=== PATIENT | male | born 1990 | race African-American/Black ===

== ENCOUNTER 2017-05-10 22:57 | Emergency (ER) | payer OTHER ==
[~2017-05-10] VITALS: Ht 188 cm; Wt 102.1 kg
[2017-05-10 23:00] VITALS: BP_SYST 139
[2017-05-10 23:25] VITALS: BP_SYST 139
== END 2017-05-10 23:20 | disposition home or self-care (01) ==
LOC: SED 22:57
DX: F41.9 Anxiety disorder, unspecified (principal)
CPT/HCPCS: 99283